=== PATIENT | female | born 1985 | race Caucasian/White ===

== ENCOUNTER 2022-11-23 21:48 | Emergency (ER) | payer OTHER ==
--- OUTSIDE RECORDS SUMMARY | 2022-11-23 21:53 | XMS REPORT | Continuity of Care Document ---
:1985 Author Organization [facility] t Address [address] [facility] [address] [place] [address] Care Team Providers Name Role Phone DESIRAE DOVER Primary Care Physician Unavailable Lore Christensen Attending Clinician Unavailable EVELIO GREENE Attending Clinician Unavailable Evelio Greene PA-C Attending Clinician Doctor Unassigned, [place] Attending Clinician Unavailable ZAFAR LUTZ Attending Clinician Unavailable Zafar Palma Attending Clinician Lennie Melton Attending Clinician Lore Felder MD Attending Clinician LENNIE ALDRICH Attending Clinician Unavailable 2, [facility] Attending Clinician Unavailable KYLAH GUTIERREZ Attending Clinician Unavailable Maty Vazquez MD Attending Clinician Kylah Syed Attending Clinician Car BOLDEN Niteshlorrie Rebolledo Attending Clinician Max Ovalles MD Attending Clinician MAX OVALLES Attending Clinician Unavailable MAX OVALLES Attending Clinician Unavailable Rafia Hernandez Attending Clinician RAFIA FLETCHER Attending Clinician Unavailable Mele Marinelli Attending Clinician Lanette Prakash Attending Clinician Arpit Avalos Attending Clinician Corey Angela MD Attending Clinician MALCOLM MIGUEL Attending Clinician Unavailable Sadie Mckinnon Attending Clinician SADIE ZHOU Attending Clinician Unavailable AMOS GALINDO Attending Clinician Unavailable TU GERARDO Attending Clinician Unavailable KNOW, DOES_NOT Admitting Clinician Unavailable MATY VAZQUEZ Admitting Clinician Unavailable MAX OVALLES Admitting Clinician Unavailable RAFIA FLETCHER Admitting Clinician Unavailable Adryan Driscoll Admitting Clinician Unavailable AMOS GALINDO Admitting Clinician Unavailable Payers Payer Name Policy Type Policy Number Effective Date Expiration Date Lorrie pereira [facility] [id number] 2016 00:00:00 PLUS Problems Condition Condition Condition Status Onset Resolution Last Treating Co mments Source Name Details Category Date Date Treatment Clinician Date Anxiety Anxiety Disease Active 2019-09 Univers 0-16 ity of 00:00: [place] [address] Medical Lee[place] Attention Attention Disease Active 2019-09 Uni vers deficit deficit 0-16 it[place] hyper[place] 00 Medical disorder disorder Branch Chiari Chiari Disease Active 2019-09 Univers malformati malformati 0-16 it y of on on 00:: [address] Dysuria Dysuria Disease Active Univers 2-28 ity of 00:00: [place] 00 Medical Branch Abnormal Abnormal Disease Active Unive rs urinalysis urinalysis 11-20 it y of 00:00: [place] [facility] Tobacco Tobacco Disease Active Univers use use 1-07 ity of disorder disorder 00:00: [place] [facility] Obesity Obesity Disease Active Univers (BMI (BMI 6-06 ity of 30-39.9) 30-39.9) 00:00: [place] [facility] Hepatitis Hepatitis Disease Active Overview: Univers 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 HbSag neg 05/2018 HIstory of HIstory of Disease Active Overview : Univers Pituitary Pituitary 01-28 Formattin i ty of cyst cyst 00:00: g of this [place] note Medical might be Branch different from the original. 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 Associate d with early breast developme nt. Papilloed amrita. Left Ventricul o-periton eal shunt (06/1994) - never replace. MRI- 2005 was normal. Last MRI (3-4 years ago)- normal. Tiny slit of cyst. Left eye is 20/20. Right eye require glasses. Neuro In 2012 and was supposed to have an MRI but did not go. Last migrain was 2011. History of History of Disease Active Overview : Univers seizures seizures 01-28 Formattin ity of 00:00: g of this [place] note Medical might be Branch different from the original. States 10 years ago Bipolar Bipolar Disease Active 2006-09 Overview: Univ ers disorder disorder 11-20 Formattin ity of in in 00:00: g of this [place] remission remission 00 note Medi asher might be Branch different from the original. ICD10 Diagnosis [employer] at age 17- treat zoloft, ablify and topomax (self discontin ued in December). Previous bipolar. Now more depressio n. Currently stable Mood. Borderline Borderline Disease Active 2006-09 U nivers personalit personalit 11-20 it y of [place] disorder [place] disorder [place] Ventricula Ventricula Disease Active 2006-09 Overview : Univers r Shunt r Shunt 11-20 Formattin ity o f 00:00: g of this [place] 00 note Medical might be Branch different from the original. See Pituitary cyst Simple Simple Problem Active 2020-01-20 [place] obesity obesity 22:41:16 l (disorder) (disorder) [place] [facility] Active Problem 01/20/2020 Medical Group Bipolar Bipolar Problem Active 2020-01-20 Me mor[place] disorder disorder 22:41:16 l (disorder) (disorder) [place] Active Problem 01/20/2020 Medical Group Allergies, Adverse Reactions, Alerts Allergy Allergy Status Severity Reaction(s) Onset Inactive Treating Comm ents Source Name Type Date Date Clinician ONDANSET DRUG Active Unknown-Cmnt Un varghese ALTA HCL INGREDI 4- ity of 00:00: [place] 00 Medical Branch Ondanset Drug Active Unknown - Unive rs al[place] Hcl Allergy See comments - it y of 00:00: [place] 00 [facility] zonisami DA Active U 2019- [facility] de 5-22 Clear 00:00: [place] 00 [facility] zonisawv DA Active U psychosis [facility] de 5-22 Clear 00:00: [place] 00 [facility] ZONISAMI DRUG Active Unknown-Cmnt 2006-09 Un varghese DE INGREDI 2-05 ity of 00:00: [place] 00 Medical [place] Zonisami Propensi Active Unknown - 2006-09 psychosis Univers de ty to See comments 2-05 ity of adverse 00:00: [place] reaction 00 Medical s Lee[place] Zonegran Zonegran Active Isela Xiong Social History Social Habit Start Date Stop Date Quantity Comments Source History of tobacco Cigarette Smoker University of use [facility] Exposure to 2022-03-25 2022-04-04 Not sure [facility] SARS-CoV-2 (event) 00:00:00 14:48:00 [facility] Alcohol intake 2022-03-17 2022-03-17 0 /d University of 00:00:00 00:00:00 [facility] Cigarettes smoked 2019-09-29 2019-09-29 Univers ity of current (pack per 00:00:00 00:00:00 ) - Reported Branch Tobacco Comment 2019-09-29 2019-09-29 started smoking Univ ersity of 00:00:00 00:00:00 07/2019 [facility] Tobacco use and 2019-09-29 2019-09-29 Smokeless Universit y of exposure 00:00:00 00:00:00 tobacco non-user [facility] Sex Assigned At [birth year] Universit y of 00:00:00 00:00:00 [facility] Smoking Status Start Date Stop Date Source Social History 2020-01-18 15:02:46 [facility] Medications Ordered Filled Start Stop Current Ordering Indication Dosage Frequency Signature Comments Components Source Medication Medication Date Date Medication? Clinician (SIG) Name Name eszopiclone Yes 2mg Take 2 mg U nivers 2 mg tablet 7-13 by mouth ity of 15:28: at [place] [address] bedtime. Medical Branch SERTraline Yes sertraline U nivers 100 mg 7-13 100 mg ity of tablet 15:28: tablet [place] [address] TAKE 1 Medical TABLET Branch EVERY DAY BY ORAL ROUTE FOR 30 DAYS. eszopiclone Yes 2mg Take 2 mg U nivers 2 mg tablet 7-13 by mouth ity of 15:28: at [place] [address] bedtime. Medical Branch SERTraline Yes sertraline U nivers 100 mg 7-13 100 mg ity of tablet 15:28: tablet [place] [address] TAKE 1 Medical TABLET Branch EVERY DAY BY ORAL ROUTE FOR 30 DAYS. eszopiclone Yes 2mg Take 2 mg U nivers 2 mg tablet 7-13 by mouth ity of 15:28: at [place] [address] bedtime. Medical Branch SERTraline Yes sertraline U nivers 100 mg 7-13 100 mg ity of tablet 15:28: tablet [place] [address] TAKE 1 Medical TABLET Branch EVERY DAY BY ORAL ROUTE FOR 30 DAYS. LOESTRIN FE Yes [id number] 1{tbl} Take 1 Univers 1 mg-20 mcg 7-13 tablet by ity of (21)/75 mg 00:00: mouth in [place] as (7) tablet 00 the Medical morning. Branch LOESTRIN FE Yes [id number] 1{tbl} Take 1 Univers 1 mg-20 mcg 7-13 tablet by ity of (21)/75 mg 00:00: mouth in [place] as (7) tablet 00 the Medical morning. Branch traZODone Yes trazodone Uni vers 50 mg 4-12 50 mg ity of tablet 13:25: tablet TAKE 1 TO Medical 2 TABLETS Branch BY MOUTH NIGHTLY traZODone Yes trazodone Uni vers 50 mg 4-12 50 mg ity of tablet 13:25: tablet TAKE 1 TO Medical 2 TABLETS Branch BY MOUTH NIGHTLY traZODone Yes trazodone Uni vers 50 mg 4-12 50 mg ity of tablet 13:25: tablet TAKE 1 TO Medical 2 TABLETS Branch BY MOUTH NIGHTLY ARIPiprazol Yes aripiprazo Univers e 15 mg 4-12 le 15 mg ity of tablet 13:07: tablet Medical Branch diazePAM 2 Yes diazepam 2 U nivers mg tablet 4-12 mg tablet ity o f 13:07: TAKE 1 TABLET BY Medical MOUTH Branch TWICE A DAY NEEDED atomoxetine Yes atomoxetin Univers 40 mg 4-12 e 40 mg ity of capsule 13:07: capsule TAKE 1 Medical CAPSULE BY Branch MOUTH EVERY DAY ARIPiprazol Yes aripiprazo Univers e 15 mg 4-12 le 15 mg ity of tablet 13:07: tablet Medical Branch diazePAM 2 Yes diazepam 2 U nivers mg tablet 4-12 mg tablet ity o f 13:07: TAKE 1 23 TABLET BY Medical MOUTH Branch TWICE A DAY NEEDED atomoxetine Yes atomoxetin Univers 40 mg 4-12 e 40 mg ity of capsule 13:07: capsule TAKE 1 Medical CAPSULE BY Branch MOUTH EVERY DAY ARIPiprazol Yes aripiprazo Univers e 15 mg 4-12 le 15 mg ity of tablet 13:07: tablet 23 Medical Branch diazePAM 2 Yes diazepam 2 U nivers mg tablet 4-12 mg tablet ity o f 13:07: TAKE 1 23 TABLET BY Medical MOUTH Branch TWICE A DAY NEEDED atomoxetine Yes atomoxetin Univers 40 mg 4-12 e 40 mg ity of capsule 13:07: capsule TAKE 1 Medical CAPSULE BY Branch MOUTH EVERY DAY NUVARING 0 2021- No [id number] 1{each} Insert 1 Univers 0.12-0.015 4-12 07-13 Each into ity of mg/24 hr 00:00: 00:00 vagina [place] vaginal 00 :00 once every Medica l insert month. Branch Insert vaginally and leave in place for 3 consecutiv e weeks, then remove for 1 week. VRAYLAR 3 Yes Univers mg Cap 3-17 ity of 00:00: [place] 00 Medical Branch VRAYLAR 3 2021-0 Yes Univers mg Cap 3-17 ity of 00:00: [place] 00 Medical Branch VRAYLAR 3 2021-0 Yes Univers mg Cap 3-17 ity of 00:00: [place] 00 Medical Branch DULoxetine 2021-0 Yes TAKE 1 Unive rs 60 mg 3-02 CAPSULE BY ity of capsule 00:00: MOUTH [place] EVERY DAY Medical FOR 30 Branch DAYS DULoxetine 2021-0 Yes TAKE 1 Unive rs 60 mg 3-02 CAPSULE BY ity of capsule 00:00: MOUTH [place] EVERY DAY Medical FOR 30 Branch DAYS DULoxetine 2021-0 Yes TAKE 1 Unive rs 60 mg 3-02 CAPSULE BY ity of capsule 00:00: MOUTH [place] EVERY DAY Medical FOR 30 Branch DAYS propranoloL 2021-0 Yes TAKE 1 Univ ers 20 mg 2-24 TABLET BY ity of tablet 00:00: MOUTH [place] EVERY DAY Medical FOR 30 Branch DAYS propranoloL 2021-0 Yes TAKE 1 Univ ers 20 mg 2-24 TABLET BY ity of tablet 00:00: MOUTH [place] 00 EVERY DAY Medical FOR 30 Branch DAYS propranoloL 2021-0 Yes TAKE 1 Univ ers 20 mg 2-24 TABLET BY ity of tablet 00:00: MOUTH [place] EVERY DAY Medical FOR 30 Branch DAYS UBRELVY 100 2021-0 Yes TAKE 1 Univ ers mg Tab 2-21 TABLET BY ity of 00:00: MOUTH AT [place] 00 ONSET OF Medical MIGRAINE. Branch MAY REPEAT 1 DOSE IN 2 HOURS IF NEEDED (DO NOT EXCEED 2 DOSES IN 24 HOURS) UBRELVY 100 2021-0 Yes TAKE 1 Univ ers mg Tab 2-21 TABLET BY ity of 00:00: MOUTH AT [place] 00 ONSET OF Medical MIGRAINE. Branch MAY REPEAT 1 DOSE IN 2 HOURS IF NEEDED (DO NOT EXCEED 2 DOSES IN 24 HOURS) UBRELVY 100 2021-0 Yes TAKE 1 Univ ers mg Tab 2-21 TABLET BY ity of 00:00: MOUTH AT [place] 00 ONSET OF Medical MIGRAINE. Branch MAY REPEAT 1 DOSE IN 2 HOURS IF NEEDED (DO NOT EXCEED 2 DOSES IN 24 HOURS) topiramate 0 Yes TAKE 1 Unive rs 100 mg 2-17 TABLET BY ity of tablet 00:00: MOUTH [place] 00 TWICE A Medical DAY FOR 90 Branch DAYS topiramate 0 Yes TAKE 1 Unive rs 100 mg 2-17 TABLET BY ity of tablet 00:00: MOUTH [place] 00 TWICE A Medical DAY FOR 90 Branch DAYS topiramate 0 Yes TAKE 1 Unive rs 100 mg 2-17 TABLET BY ity of tablet 00:00: MOUTH [place] 00 TWICE A Medical DAY FOR 90 Branch DAYS VIIBRYD 20 0 Yes TAKE 1 Unive rs mg 1-07 TABLET BY ity of 00:00: MOUTH [place] 00 EVERY DAY Medical WITH FOOD Branch FOR 30 DAYS VIIBRYD 20 0 Yes TAKE 1 Unive rs mg 1-07 TABLET BY ity of 00:00: MOUTH [place] 00 EVERY DAY Medical WITH FOOD Branch FOR 30 DAYS VIIBRYD 20 0 Yes TAKE 1 Unive rs mg 1-07 TABLET BY ity of 00:00: MOUTH [place] 00 EVERY DAY Medical WITH FOOD Branch FOR 30 DAYS ibuprofen 2020-0 Yes [id number] 800mg Take 1 Univers 800 mg 5-24 tablet by ity of tablet 00:00: mouth [place] 00 every 8 Medical (eight) Branch hours as needed for Pain (scale 4-6). methocarbam 2020-0 Yes [id number] 750mg Take 1 Univers oL 750 mg 5-24 tablet by ity o f tablet 00:00: mouth [place] 00 every 6 Medical (six) Branch hours as needed (MUSCLE SPASM). ibuprofen 2020-0 Yes [id number] 800mg Take 1 Univers 800 mg 5-24 tablet by ity of tablet 00:00: mouth [place] 00 every 8 Medical (eight) Branch hours as needed for Pain (scale 4-6). methocarbam 2020-0 Yes [id number] 750mg Take 1 Univers oL 750 mg 5-24 tablet by ity o f tablet 00:00: mouth [place] 00 every 6 Medical (six) Branch hours as needed (MUSCLE SPASM). ibuprofen 2020-0 Yes [id number] 800mg Take 1 Univers 800 mg 5-24 tablet by ity of tablet 00:00: mouth [place] 00 every 8 Medical (eight) Branch hours as needed for Pain (scale 4-6). methocarbam 0 Yes [id number] 750mg Take 1 Univers oL 750 mg 5-24 tablet by ity o f tablet 00:00: mouth [place] 00 every 6 Medical (six) Branch hours as needed (MUSCLE SPASM). divalproex 0 Yes Take by [facility] ers sodium 1-15 mouth. ity of (DEPAKOTE 08:22: [place] ORAL) 44 Medical Branch divalproex 2020-0 Yes Take by [facility] ers sodium 1-15 mouth. ity of (DEPAKOTE 08:22: [place] ORAL) 44 Medical Branch divalproex 2020-0 Yes Take by [facility] ers sodium 1-15 mouth. ity of (DEPAKOTE 08:22: [place] ORAL) 44 Medical Branch albuterol 0 Yes [id number] 2{puff} Inhale 2 Univers 90 1-05 Puffs ity of mcg/actuati 00:00: every 4 [place] as on inhaler 00 (four) Medical hours as Branch needed for Wheezing or Shortness of Breath. ondansetron Yes [id number] 4mg Take 1 Univers (ZOFRAN 1-05 tablet by ity of ODT) 4 mg 00:00: mouth [place] disintegrat 00 every 8 Medic al ing tablet (eight) Branch hours as needed for Nausea and Vomiting (N/V). benzonatate 0 Yes [id number] 100mg Take 1 Univers 100 mg 1-05 capsule by ity of capsule 00:00: mouth 3 [place] 00 (three) Medical times Branch daily as needed for Cough. albuterol 0 Yes [id number] 2{puff} Inhale 2 Univers 90 1-05 Puffs ity of mcg/actuati 00:00: every 4 [place] as on inhaler 00 (four) Medical hours as Branch needed for Wheezing or Shortness of Breath. ondansetron 2020-0 Yes [id number] 4mg Take 1 Univers (ZOFRAN 1-05 tablet by ity of ODT) 4 mg 00:00: mouth [place] disintegrat 00 every 8 Medic al ing tablet (eight) Branch hours as needed for Nausea and Vomiting (N/V). benzonatate 2020-0 Yes [id number] 100mg Take 1 Univers 100 mg 1-05 capsule by ity of capsule 00:00: mouth 3 [place] 00 (three) Medical times Branch daily as needed for Cough. albuterol Yes [id number] 2{puff} Inhale 2 Univers 90 1-05 Puffs ity of mcg/actuati 00:00: every 4 [place] as on inhaler 00 (four) Medical hours as Branch needed for Wheezing or Shortness of Breath. ondansetron Yes [id number] 4mg Take 1 Univers (ZOFRAN 1-05 tablet by ity of ODT) 4 mg 00:00: mouth [place] disintegrat 00 every 8 Medic al ing tablet (eight) Branch hours as needed for Nausea and Vomiting (N/V). benzonatate Yes [id number] 100mg Take 1 Univers 100 mg 1-05 capsule by ity of capsule 00:00: mouth 3 [place] 00 (three) Medical times Branch daily as needed for Cough. proMETHazin 2020-0 Yes [id number] 25mg Take 1 Univers e 25 mg 9-19 tablet by ity of tablet 00:00: mouth [place] 00 every 6 Medical (six) Branch hours as needed for Nausea and Vomiting (N/V). ketorolac 2020-0 Yes [id number] 10mg Take 1 U nivers 10 mg 9-19 tablet by ity of tablet 00:00: mouth [place] 00 every 6 Medical (six) Branch hours as needed for Pain (scale 7-10). proMETHazin 2020-0 Yes [id number] 25mg Take 1 Univers e 25 mg 9-19 tablet by ity of tablet 00:00: mouth [place] 00 every 6 Medical (six) Branch hours as needed for Nausea and Vomiting (N/V). ketorolac 2020-0 Yes [id number] 10mg Take 1 U nivers 10 mg 9-19 tablet by ity of tablet 00:00: mouth [place] 00 every 6 Medical (six) Branch hours as needed for Pain (scale 7-10). proMETHazin 2020-0 Yes [id number] 25mg Take 1 Univers e 25 mg 9-19 tablet by ity of tablet 00:00: mouth [place] 00 every 6 Medical (six) Branch hours as needed for Nausea and Vomiting (N/V). ketorolac 2020-0 Yes [id number] 10mg Take 1 U nivers 10 mg 9-19 tablet by ity of tablet 00:00: mouth every 6 Medical (six) Branch hours as needed for Pain (scale 7-10). Amoxicillin 2020-0 Yes 1 tab, PO, Memoria 875 MG / 4-27 Q12H, Take l Clavulanate 15:16: with food, [place] 125 MG Oral 00 X 10 day, Tablet # 20 tab, [Augmentin 0 875-mg] Refill(s), Pharmacy: [facility] #[id number] Fluconazole 2020-0 Yes 150 mg = 1 Memoria 150 MG Oral 4-27 tab, PO, l Tablet 15:16: ONCE, As [place] [Diflucan] 00 needed for yeast infection, # 1 tab, 0 Refill(s), Pharmacy: [facility] #[id number] Benadryl 2020-0 Yes 0 Memoria 4-27 Refill(s) l 15:03: Depakote 2020-0 Yes PO, TID, 0 Mem oria 4-27 Refill(s) l 15:03: Benztropine 2020-0 Yes 0 Memori a 4-27 Refill(s) l 15:03: Remeron 2020-0 Yes PO, Memoria 4-27 Bedtime, 0 l 15:03: Refill(s) cetirizine 2020-0 Yes 10 mg = 1 Me moria 10 mg oral 4-16 tab, PO, l tablet 21:49: Daily, # [place] 00 14 tab, 0 Refill(s) Ketorolac 2020-0 No 30 mg, Memori a 4-16 Route: IM, l 21:42: ONCE, Dosing Weight 100, kg, Start date: 01/07/20 16:42:00 CDT, Stop date: 01/07/20 16:42:00 CDT diclofenac 2020-0 Yes 75 mg = 1 Me moria sodium 75 4-16 tab, PO, l mg oral 21:42: BID, # 14 [place] nn enteric 00 tab, 0 coated, Refill(s) delayed-rel ease tablet mirtazapine 2020-0 Yes Univer s 15 mg 4-15 ity of tablet 00:00: [address] Branch mirtazapine 2020-0 Yes Univer s 15 mg 4-15 ity of tablet 00:00: [place] [facility] mirtazapine 2020-0 Yes Univer s 15 mg 4-15 ity of tablet 00:00: [place] [facility] topiramate 2020-0 Yes Univers 25 mg 4-13 ity of tablet 00:00: [place] [facility] SERTraline 2020-0 Yes Univers 50 mg 4-13 ity of tablet 00:00: [place] [facility] topiramate 2020-0 Yes Univers 25 mg 4-13 ity of tablet 00:00: [place] [facility] SERTraline 2019-0 Yes Univers 50 mg 4-13 ity of tablet 00:00: [place] [facility] topiramate 2019-0 Yes Univers 25 mg 4-13 ity of tablet 00:00: [place] [facility] Branch SERTraline 2019-0 Yes Univers 50 mg 4-13 ity of tablet 00:00: [place] [facility] Branch Zoloft 2019-0 Yes PO, Daily, Memor ia 4-08 0 l 16:09: Refill(s) [place] Clonidine 2020-0 Yes 0 Memoria 4-08 Refill(s) l 16:09: [place] Abilify 2019-0 Yes PO, Daily, Car [place] 4-08 0 l 16:09: Refill(s) [place] gabapentin 2019-0 Yes Univers 300 mg 4-03 ity of capsule 00:00: [place] [facility] gabapentin 2020-0 Yes Univers 300 mg 4-03 ity of capsule 00:00: [place] [facility] gabapentin 2020-0 Yes Univers 300 mg 4-03 ity of capsule 00:00: [place] [facility] Branch ABILIFY 2020-0 Yes Univers MAINTENA 3-24 ity of 400 mg SSRR 00:00: [place] injection Medical Branch ABILIFY 2020-0 Yes Univers MAINTENA 3-24 ity of 400 mg SSRR 00:00: [place] injection Medical Branch ABILIFY 2020-0 Yes Univers MAINTENA 3-24 ity of 400 mg SSRR 00:00: [place] injection [facility] Branch ondansetron 2020-0 Yes [id number] 4mg Take 1 Univers 4 mg 3-17 tablet by ity of disintegrat 00:00: mouth [place] ing tablet 00 every 4 Medica l (four) Branch hours as needed for Nausea and Vomiting (N/V). ondansetron 2019-0 Yes [id number] 4mg Take 1 Univers 4 mg 3-17 tablet by ity of disintegrat 00:00: mouth [place] ing tablet 00 every 4 Medica l (four) Branch hours as needed for Nausea and Vomiting (N/V). ondansetron 2020-0 Yes [id number] 4mg Take 1 Univers 4 mg 3-17 tablet by ity of disintegrat 00:00: mouth [place] ing tablet 00 every 4 Medica l (four) Branch hours as needed for Nausea and Vomiting (N/V). clonazePAM 2020-0 Yes Univers 1 mg tablet 1-03 ity of 00:00: [facility] Branch DULoxetine 2020-0 Yes Univers 30 mg 1-03 ity of capsule 00:00: [facility] clonazePAM 2019-0 Yes Univers 1 mg tablet 1-03 ity of 00:00: [facility] Branch DULoxetine 2019-0 Yes Univers 30 mg 1-03 ity of capsule 00:00: [facility] clonazePAM 2019-0 Yes Univers 1 mg tablet 1-03 ity of 00:00: [facility] DULoxetine 2019-0 Yes Univers 30 mg 1-03 ity of capsule 00:00: [facility] Branch cyclobenzap 2018-09 Yes [id number] 5mg Take 1 Univers rine 5 mg 2-27 tablet by ity o f tablet 00:00: mouth 3 (three) Medical times Branch daily as needed for Muscle Spasms. ondansetron 2018-09 Yes [id number] 4mg Take 1 Univers (ZOFRAN 2-27 tablet by ity of ODT) 4 mg 00:00: mouth [place] disintegrat 00 every 8 Medic al ing tablet (eight) Branch hours as needed for Nausea and Vomiting (N/V). cyclobenzap 2018-09 Yes [id number] 5mg Take 1 Univers rine 5 mg 2-27 tablet by ity o f tablet 00:00: mouth 3 00 (three) Medical times Branch daily as needed for Muscle Spasms. ondansetron 2018-09 Yes [id number] 4mg Take 1 Univers (ZOFRAN 2-27 tablet by ity of ODT) 4 mg 00:00: mouth [place] disintegrat 00 every 8 Medic al ing tablet (eight) Branch hours as needed for Nausea and Vomiting (N/V). cyclobenzap 2018-09 Yes [id number] 5mg Take 1 Univers rine 5 mg 2-27 tablet by ity o f tablet 00:00: mouth 3 [place] 00 (three) Medical times Branch daily as needed for Muscle Spasms. ondansetron 2018-09 Yes [id number] 4mg Take 1 Univers (ZOFRAN 2-27 tablet by ity of ODT) 4 mg 00:00: mouth [place] disintegrat 00 every 8 Medic al ing tablet (eight) Branch hours as needed for Nausea and Vomiting (N/V). PROAIR HFA Yes INHALE 1 Uni vers 90 2-26 PUFF BY ity of mcg/actuati 00:00: MOUTH [place] on inhaler 00 EVERY 6 Medica l HOURS Branch NEEDED FOR SHORTNESS OF BREATH PROAIR HFA Yes INHALE 1 Uni vers 90 2-26 PUFF BY ity of mcg/actuati 00:00: MOUTH [place] on inhaler 00 EVERY 6 Medica l HOURS Branch NEEDED FOR SHORTNESS OF BREATH PROAIR HFA Yes INHALE 1 Uni vers 90 2-26 PUFF BY ity of mcg/actuati 00:00: MOUTH [place] on inhaler 00 EVERY 6 Medica l HOURS Branch NEEDED FOR SHORTNESS OF BREATH Immunizations Ordered Filled Immunization Date Status Comments [facility] e Immunization Name Name Rho (d) Immune 2018-12-31 Completed University of Globulin 00:00:00 [facility] Rho (d) Immune 2018-12-31 Completed University of Globulin 00:00:00 [facility] Rho (d) Immune 2018-12-31 Completed University of Globulin 00:00:00 [facility] TDAP 2018-10-22 Completed University of 00:00:00 [facility] Influenza Virus 2018-10-22 Completed Universit y of Vaccine Quad .5 mL 00:00:00 [facility] IM 6+ MO Branch TDAP 2018-10-22 Completed University of 00:00:00 [facility] Influenza Virus 2018-10-22 Completed Universit y of Vaccine Quad .5 mL 00:00:00 [facility] IM 6+ MO Branch TDAP 2018-10-22 Completed University of 00:00:00 [facility] Influenza Virus 2018-10-22 Completed Universit y of Vaccine Quad .5 mL 00:00:00 [facility] 6+ MO Branch Rho (d) Immune 2018-10-09 Completed University of Globulin 00:00:00 [facility] Rho (d) Immune 2018-10-09 Completed University of Globulin 00:00:00 [facility] Rho (d) Immune 2018-10-09 Completed University of Globulin 00:00:00 [facility] Varicella 2016-08-14 Completed University of (varivax)(chicken 00:00:00 [place] M edical pox) Branch MMR 2016-08-14 Completed University of 00:00:00 [facility] Pneumococcal 2016-08-14 Completed University o f Polysaccharide, 00:00:00 [place] Med ical PPSV23 (PNEUMOVAX) Branch Varicella 2016-08-14 Completed University of (varivax)(chicken 00:00:00 [facility] edical pox) Branch MMR 2016-08-14 Completed University of 00:00:00 [facility] Pneumococcal 2016-08-14 Completed University o f Polysaccharide, 00:00:00 [place] [facility] PPSV23 (PNEUMOVAX) Branch Varicella 2016-08-14 Completed University of (varivax)(chicken 00:00:00 [facility] edical pox) Branch MMR 2016-08-14 Completed University of 00:00:00 [facility] Pneumococcal 2016-08-14 Completed University o f Polysaccharide, 00:00:00 [place] [facility] PPSV23 (PNEUMOVAX) Branch Rho (d) Immune 2016-06-18 Completed University of Globulin 00:00:00 [facility] Rho (d) Immune 2016-06-18 Completed University of Globulin 00:00:00 [facility] Rho (d) Immune 2016-06-18 Completed University of Globulin 00:00:00 [facility] Vital Signs Vital Name Observation Time Observation Value Comments Source Systolic blood 2022-04-04 20:28:00 115 mm[Hg] Univer sity of pressure [facility] Diastolic blood 2022-04-04 20:28:00 77 mm[Hg] Unive rsity of pressure [facility] Heart rate 2022-04-04 20:28:00 83 /min [facility] Body temperature 2022-04-04 20:28:00 37.33 Yudy [facility] Respiratory rate 2022-04-04 20:28:00 18 /min [facility] Body height 2022-04-04 20:28:00 170.2 cm [facility] Body weight 2022-04-04 20:28:00 102.059 kg [facility] BMI 2022-04-04 20:28:00 35.24 kg/m2 [facility] Systolic (mm Hg) 2020-01-18 14:54:00 Car [facility] Diastolic (mm Hg) 2020-01-18 14:54:00 Mem [facility] Heart Rate 2020-01-18 14:54:00 [facility] Respitory Rate 2020-01-18 14:54:00 [facility] Temperature Oral (F) 2020-01-18 14:54:00 99.1 F [facility] Height 2020-01-18 14:54:00 170.18 cm [facility] Weight 2020-01-18 14:54:00 [facility] BMI Calculated 2020-01-18 14:54:00 [facility] Systolic (mm Hg) 2020-01-07 21:25:00 Car rial [facility]rese Diastolic (mm Hg) 2020-01-07 21:25:00 Mem o[facility] Heart Rate 2020-01-07 21:25:00 [facility] Respitory Rate 2020-01-07 21:25:00 Memori al [facility] Temperature Oral (F) 2020-01-07 21:25:00 98.3 F [facility] Height 2020-01-07 21:25:00 170.18 cm [facility] Weight 2020-01-07 21:25:00 [facility] BMI Calculated 2020-01-07 21:25:00 [facility] Systolic (mm Hg) 2019-12-30 16:10:00 Car rial [facility] Diastolic (mm Hg) 2019-12-30 16:10:00 Mem [facility] Heart Rate 2019-12-30 16:10:00 [facility] Height 2019-12-30 16:10:00 170.18 cm [facility] Weight 2019-12-30 16:10:00 [facility] BMI Calculated 2019-12-30 16:10:00 Memori [facility] Systolic (mm Hg) 2019-12-28 18:15:00 Car rial Tyrese Diastolic (mm Hg) 2019-12-28 18:15:00 Mem [facility] Heart Rate 2019-12-28 18:15:00 [facility] Respitory Rate 2019-12-28 18:15:00 Isela Couch Temperature Oral (F) 2019-12-28 18:15:00 98.9 F Yusuf Xiong Height 2019-12-28 18:15:00 170.18 cm Yusuf Abreuann Weight 2019-12-28 18:15:00 Yusuf Xiong BMI Calculated 2019-12-28 18:15:00 Isela Couch Procedures Procedure Date / Time Performing Clinician Source Performed POCT TEST 2022-04-04 20:54:00 Evelio Greene ty of [facility] CONSENT FOR 2022-04-04 05:01:00 Doctor Unassigned, No Univer [facility] CONTRACEPTION Name [facility] Incision and drainage of 2019-12-28 19:03:00 Mem orial [facility]rese abscess (eg, carbuncle, suppurative hidradenitis, cutaneous or subcutaneous abscess, cyst, furuncle, or paronychia); simple or single Encounters Start End Encounter Admission Attending Care Care Encounter Source Date/Time Date/Time Type Type Clinicians Facility Department ID 2021-07-23 Emergency [facility] [id number] Univers [facility]21 Emergency [facility] [id number] Univers 18:24:38 [facility]-07-20 Emergency [facility] [id number] Univers 14:50:34 [facility] 2020-02-12 Inpatient SAMIRA Christensen, [facility] [id number] [facility] 13:00:00 Lore Daugherty [facility] 2022-04-04 2022-04-04 Outpatient R JC [facility] [id number] Univers 15:00:00 15:51:29 EVELIO hazel [facility] 2022-04-04 2022-04-04 Office Jc NVSARI [id number] Univers 15:00:00 15:51:29 Visit Evelio LOPEZ [id number] i [facility] [id number] [phone] [place] dical [address] BUILDING 2022-04-04 2022-04-04 Orders Doctor SANCHEZ 1.2.840.114 [id number] Univers 00:00:00 00:00:00 Only Unassigned, STEPHANY 350.1.13.10 ity of [place] [facility] [id number] Jaydon as [phone] [address] 2022-03-24 2022-03-24 [facility] [id number] Univers 00:00:00 00:00:00 Evelio JOHN 350.1.13.10 i ty [place] [id number] Me dicjeremías [address] 2022-03-17 2022-03-17 Outpatient R BOLIVAR [facility] [id number] Univers 11:40:00 11:47:58 [facility] 2022-03-17 2022-03-17 Urgent [facility] 1.2.840.114 [id number] Univers 11:40:00 11:47:58 Care [facility] 350.1.13.10 i ty of [place] 4.2.7.2.686 Jaydon as IMANI?BLEA [phone] [address] OFFICE [facility] 2022-02-07 2022-02-07 Urgent Lennie Aldrich [facility] 1.2.840 .114 [id number] Univers 16:40:00 17:00:00 Care [facility] 350.1.13.10 ity of [place] 4.2.7.2.686 [place] as IMANI?BLEA [phone] [address] OFFICE [facility] 2022-02-07 2022-02-07 Outpatient R CURTIS [facility] [id number] Univers 16:40:00 16:40:00 LENNIE hazel o [facility] 2022-01-02 2022-01-02 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, 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 [facility] 1.2.840.114 [id number] Univers 14:45:00 15:00:00 Visit Evelio Greene 350.1.13.10 ity [place] [phone] Me dical NAL 353 [facility] 2022-01-02 2022-01-02 Outpatient R JC [facility] [id number] Univers 13:30:00 14:29:56 EVELIO hazel [facility] 2022-01-02 2022-01-02 Office [facility] 1.2.216.131 [id number] Univers 13:30:00 14:29:56 Visit Evelio LOPEZ 350.1.13.10 i ty of [facility] 4.[place] [phone] Me dical NAL 134 [facility] 2022-01-02 2022-01-02 Orders Doctor LAURA 1.2.840.114 [id number] Univers 00:00:00 00:00:00 Only Unassigned, STEPHANY 350.1.13.10 ity of [place] [facility] 4.2.7.2.686 Jaydon as [phone] [facility] [address] 2021-12-14 2021-12-14 Outpatient R JC [facility] [id number] Univers 13:00:00 13:00:00 [facility] 2021-02-12 2021-02-13 Emergency X JAMAL [facility] ERT [id number] Univers 21:22:00 00:24:00 KYLAH [facility] 2021-02-12 2021-02-13 Emergency Maty Vazquez [facility] 1.2.840 .114 [id number] Univers 21:22:00 00:24:00 Kylah Gutierrez 350.1.13. 10 ity [place] [phone] [facility] [address] 2020-12-13 2020-12-13 Patient Car [facility] 1.2.840.114 [id number] Univers 00:00:00 00:00:00 Outreach Nitesh HYATT 350.1.13.10 i ty of [facility] 4.2.7.2.[place] [phone] Me dical [address] 2020-10-26 2020-10-26 [facility] 1.2.656.016 [id number] Univers 14:34:55 23:59:00 Encounter Max Lopez [facility].10 [facility] [place] [phone] [facility] [address] 2020-10-26 2020-10-26 Outpatient Hamlet OVALLES MAX [facility] [id number] Univers 14:34:55 23:59:00 PRETEMAX Spangler [facility] 2020-10-26 2020-10-26 Orders Doctor LAURA 1.2.840.114 [id number] Univers 00:00:00 00:00:00 Only UnassignedSTEPHANY 350.1.13.10 ity [place] [id number] Jaydon as [phone] [address] 2020-10-17 2020-10-17 Outpatient Hamlet GREENE [facility] [id number] Univers 09:30:00 09:30:00 [facility] 2020-10-07 2020-10-07 Office [facility] 1.2.840.114 [id number] Univers 08:07:02 09:24:50 Visit Max Lopez 350.1.13.10 [facility] 4.2.7.2.686 [facility] [phone] [place] [id number] [facility] 2020-10-07 2020-10-07 Outpatient MAX LINK [facility] [id number] Univers 08:00:00 08:00:00 PREETMAX [facility] 2020-10-07 2020-10-07 Orders Doctor LAURA 1.2.840.114 [id number] Univers 00:00:00 00:00:00 Only UnassignedSTEPHANY 350.1.13.10 ity [place] [facility] 4.2.7.2.686 Jaydon as [phone] [address] 2020-10-04 2020-10-04 Outpatient MAX LINK [facility] [id number] Univers 13:40:00 13:40:00 MAX [facility]ES [facility] 2020-09-27 2020-09-27 Emergency [facility] 1.2.840.114 [id number] Univers 14:43:00 18:45:00 Rafia Lopez 350.1.13.10 i ty of [place] 4.2.7.2.686 [facility] [phone] [address] 2020-09-27 2020-09-27 Emergency X ARPIT, [facility] ERT [id number] Univers 14:43:00 18:45:00 [facility] 2020-06-10 2020-06-11 Emergency [facility] 1.2.395.683 [id number] Univers 20:12:00 00:50:00 Maty Lopez 350.1.13.10 ity of [place] 4.2.7.2.686 [facility] [phone] [address] 2020-02-12 2020-02-12 Outpatient Fermin[facility] [id number] [facility] 18:47:00 18:47:00 Lore [facility] 2020-01-21 2020-01-21 Office Jc [facility] 1.2.184.046 [id number] Univers 10:11:55 10:52:29 Visit Evelio Lopez 350.1.13.10 i ty of [place] 4.2.7.2.686 [facility] Professio [phone] Me dical [address] 2020-01-21 2020-01-21 Office Jc [facility] 1.2.272.570 [id number] 10:11:55 10:52:29 Visit Evelio Lopez 350.1.13.10 [place] 4.2.7.2.686 Professio [phone] [address] 2020-01-21 2020-01-21 Outpatient Hamlet GREENE [facility] [id number] Univers 10:00:00 10:00:00 EVELIO hazel [facility] 2020-01-21 2020-01-21 Orders Doctor SANCHEZ 1.2.840.114 [id number] Univers 00:00:00 00:00:00 Only Unassigned, STEPHANY 350.1.13.10 ity of [place] [facility] 4.2.7.2.686 Jaydon as [id number] [address] 2020-01-21 2020-01-21 Orders Doctor LAURA 1.2.840.114 [id number] 00:00:00 00:00:00 Only Unassigned, STEPHANY 350.1.13.10 [place] [facility] 4.2.7.2.686 [id number] 2020-01-18 2020-01-19 Outpatient nullFlavo [facility] Urgent [id number] Memoria 15:00:00 04:59:59 r Care 03 l Oniel shanks 2020-01-18 2020-01-18 Outpatient Melincoff, [facility] [id number] 10:00:00 23:59:59 Mele Crys 03 2020-01-18 2020-01-18 Outpatient MHIE MHIE [id number] Memoria 10:00:00 10:00:00 03 saima Sidney 2020-01-07 2020-01-08 Outpatient nullFlavo MH Urgent [id number] Memoria 21:20:00 04:59:59 r Care 02 l [facility] 2020-01-07 2020-01-07 Outpatient Olinda, MHMG [facility] [id number] 16:20:00 23:59:59 Lanette Elizabeth 02 2020-01-07 2020-01-07 Outpatient MHIE MHIE [id number] Memoria 16:20:00 16:20:00 02 saima Sidney 2019-12-30 2019-12-31 Outpatient nullFlavo MH Urgent [id number] Memoria 16:00:00 04:59:59 r Care 01 l [facility] 2019-12-30 2019-12-30 Outpatient Bailey, MHMG MH[facility] [id number] 11:00:00 23:59:59 Vincent 01 2019-12-30 2019-12-30 Outpatient MHIE MHIE [id number] Memoria 11:00:00 11:00:00 01 l Sidney 2019-12-28 2019-12-29 Outpatient nullFlavo MH Urgent [id number] Memoria 18:30:00 04:59:59 r Care 00 l [facility] 2019-12-28 2019-12-28 Outpatient Olinda, ALEXIAMG MHMG [id number] 13:30:00 23:59:59 Lanette D 2019-12-28 2019-12-28 Outpatient MHIE MHIE [id number] Memoria 13:30:00 13:30:00 00 l Tyrese 2019-12-21 2019-12-21 Outpatient R JC [facility] [id number] Univers 09:30:00 09:30:00 EVELIO hazel [facility] 2019-12-21 2019-12-21 Telemedici [facility] 1.2.840.114 [id number] Univers 08:15:59 08:30:59 ne Visit Evelio Lopez 350.1.13.10 [facility] [place].2.[place].2.[place] [facility] [phone] T[place] dical nal 134 [facility] 2019-12-08 2019-12-08 Emergency [facility] 1.2.735.792 [id number] Univers 15:30:27 18:20:00 Corey Lopez 350.1.13.10 i ty [facility] 4.2.7.2.[place] [phone] [place] [address] [place] 2019-12-08 2019-12-08 Outpatient R LAMONT [facility] [id number] Univers 16:15:00 16:15:00 MALCOLM hazel [facility] 2019-11-27 2019-11-27 Office [facility] 1.2.387.413 [id number] Univers 10:54:04 11:19:41 Visit Sadie Flores CUSTOMS CONSULTANT 350.1.13.10 it y of [facility] 4.2.7.2.686 Jaydon as MATERNAL [phone] Med ical & CHILD [address] [place] [address] 2019-11-27 2019-11-27 Outpatient Hamlet ZHOU [facility] [id number] Univers 10:45:00 10:45:00 SADIE hazel [facility] 2019-11-24 2019-11-24 Telephone [facility] 1.2.840.114 [id number] Univers 00:00:00 00:00:00 Sadie Flores CUSTOMS CONSULTANT 350.1.13.10 it y of [facility] 4.2.7.2.686 Jaydon as MATERNAL [phone] [facility] CH[facility] [address] [place] [address] 2019-11-23 2019-11-23 Telephone [facility] 1.2.840.114 [id number] Univers 00:00:00 00:00:00 Sadie Flores CUSTOMS CONSULTANT 350.1.13.10 it y of [facility] 4.7.2.686 Jaydon as MATERNAL [phone] [facility] CHILD [address] [place] [address] 2019-11-20 2019-11-20 Office [facility] 1.2.634.452 [id number] Univers 15:56:52 16:32:12 Visit Sadie Flores CUSTOMS CONSULTANT 350.1.13.10 it y of [facility] 4.2.7.2.686 Jaydon as MATERNAL [id number] [facility] & CHILD [address] [place] [address] 2019-11-20 2019-11-20 Outpatient R ABELARDO [facility] [id number] Univers 16:00:00 16:00:00 SADIE hazel [facility] 2019-10-16 2019-10-16 Office [facility] 1.2.610.660 [id number] Univers 10:49:10 11:46:00 Visit Sadie Flores CUSTOMS CONSULTANT 350.1.13.10 it y of [facility] 42.7.2.686 Jaydon as MATERNAL [phone] [facility] & [address] 2019-09-18 2019-09-18 Emergency X MATEO [facility] ERT [id number] Univers 12:36:45 16:29:00 AMOS hazel [facility] 2019-05-13 2019-05-13 Orders Doctor LAURA 1.2.840.114 [id number] Univers 00:00:00 00:00:00 Only Unassigned, STEPHANY 350.1.13.10 ity of [place] [facility] 42.7.2.686 Jaydon as [phone] [address] 2019-01-06 2019-01-06 Outpatient R TU GERARDO [facility] [id number] Univers 13:00:00 14:32:12 ity [facility] Results Test Description Test Time Test Comments Results Result Comments Source POCT TEST 2022-04-04 20:54:00 Test Item Value Reference Range Interpretation Comme nts POCT PREG (test code = 1605) Negative On board controls acceptable with C Line (test code = 3574) Yes POCT PREG LOT # (test code = 3575) POCT PREG TEST DATE (test code = 3576) [facility]00 RUN DATE: 02/24/20 [facility] - LAB PAGE 1 RUN TIME: 1418 Specimen Inquiry RUN USER: INTERFACE ---- --------PATIENT: DANIA DOVER LOC: [facility] U #: [id number] AGE/SX: 35/F ROOM: RE02/17/20[facility] DR: Lore Christensen MD : 87 BED: DIS: STATUS: KRISTI NOBLE TLOC: SPEC #: [id number] RECD: 02/17/20 STATUS: RAFA MOORE #: [id number] HAIR: 02/17/[address] [facility] [address]: Lore Christensen MD ENTERED: 02/17/20 SP TYPE:SURG OTHR DR: DOES_NOT KNOW Adryan Driscoll Jr, MDORDERED: SURG PATH LVL 3 COPIES TO: DOES_NOT KNOW Adryan Driscoll Jr, MD [address] [facility] [address] [facility] [address] [place] [address] [facility] [address] [place] [id number] HISTOLOGY: TISSUE ID BLK PCS NARINDER LEV PROCEDURE DISPOSITION ____ ___ ___ ___ GALLBLADDER, NO A 1-2 1 PROCEDURES: SURG PATH LVL 3 (02/17/20) TISSUES: A. GALLBLADDER, NOS - GALLBLADDER CLINICAL HISTORY SYMPTOMATIC CHOLELITHIASIS - K80.20 CPT CODES CPT CODE(S): 01111 , , , , , , FINALDIAGNOSIS Gallbladder, laparoscopic cholecystectomy: MILD CHRONIC CHOLECYSTITIS WITH CHOLELITHIASIS REACTIVE LYMPH NODE CONTINUED ON NEXT PAGE RUN DATE: 02/24/20 [facility] PAGE 2 RUN TIME: 1418 Specimen Inquiry RUN USER: INTERFACE SPEC #: [facility]:[id number] PATIENT: DANIA DOVER #[id number] (Contin ued) GROSS DESCRIPTION Gallbladder. Received in formalin is an intact gallbladder, 3.3 x 3.5 x 2.5 cm, with awall, 0.3 cm in average thickness. The mucosa is green-brown, smooth and velvety. The lumen [id number] mL of dark green-brown slightly viscous bile and five brown multifaceted calculi, 1.3 x 0.8 x 0.5- 1.7 x 1.3 x 1.3 cm. Adjacent to the cystic duct is a pink-malin lymph node, 0.5 cm in greatest dimension. The lymph node is bisected and the cut surface is malin-pink and solid. ba/nr Section code: A1 Oleomargarine Maker sections of gallbladder A2 Entire lymph node Grossing performed at [facility] Pathology, [address], [address], [place] [address]. Manager Advertising: Brad Streeter M.D. MICROSCOPIC DESCRIPTION Gallbladder. Sections demonstrate gallbladder with associated mucosa. The mucosa demonstrate mild chronic inflammation. Inflammation extends to involve the muscular wall. No dysplasia or malignancy is identified. Sections also demonstrate a reactive lymph node. Signed SIGNATURE ON [place] Melba 02/24/20 1418 END OF REPORT Novel Coronavirus 2019 [id number] 18:33:00 Test Item Value Reference Range Interpretation Comments Novel Coronavirus 2018 Inhouse (test Negative Negative code = COVNONPUI) Comment: PRE OPNovel Coronavirus 2019 [id number] 18:32:00 Test Item Value Reference Range Interpretation Comments Novel Coronavirus 2018 Inhouse (test Negative Negative code = COVNONPUI) Comment: PRE OPBASIC METABOLIC [id number] 19:28:00 Test Item Value Reference Range Interpretation Comments SODIUM (test code = NA) 139 mmol/L 134-147 N POTASSIUM (test code = 3.7 mmol/L 3.4-5.0 N K) CHLORIDE (test code = 108 mmol/L 100-108 N CL) CARBON DIOXIDE (test 26 mmol/L 21-32 N code = CO2) ANION GAP (test code = 5.0 GAP calc 4.0-15.0 N GAP) GLUCOSE (test code = 129 MG/DL 70-110 H GLU) BLOOD UREA NITROGEN 12 MG/DL 7-18 N (test code = BUN) GLOMERULAR FILTRATION >=60 max estimate >60 RATE (test code = GFR) estGFR CREATININE (test code = 0.8 MG/DL 0.6-1.0 N CREAT) CALCIUM (test code = CA) 8.8 MG/DL 8.5-10.1 N PROTHROMBIN [id number] 19:27:00 Test Item Value Reference Range Interpretation Comments PT PATIENT (test code = PTP) 9.0 SECONDS 9.3-12.9 L INTERNATIONAL NORMAL RATIO 0.80 INR Unit 0.8-1.2 N (test code = INR) THROMBOPLASTIN TIME [id number] 19:27:00 Test Item Value Reference Range Interpretation Comments THROMBOPLASTIN TIME PARTIAL 35.9 SECONDS 26-35 H (test code = PTT) HCG SERUM [id number] 19:23:00 Test Item Value Reference Range Interpretation Comments HCG SERUM QUAL (test SERUM NEGATIVE SCREEN NEGATIVE code = HCGQL) CBC W/AUTO [id number] 19:16:00 Test Item Value Reference Range Interpretation Comments WHITE BLOOD CELL (test code = 10.2 K/mm3 3.5-11.0 N WBC) RED BLOOD CELL (test code = RBC) 4.99 M/mm3 4.70-6.10 N HEMOGLOBIN (test code = HGB) 14.3 G/DL 10.4-14.9 N HEMATOCRIT (test code = HCT) 46.0 % 31.5-44.1 H MEAN CELL VOLUME (test code = 92.2 Fl 84.5-98.6 N MCV) MEAN CELL HGB (test code = MCH) 28.7 pg 27.0-34.2 N MEAN CELL HGB CONCETRATION (test 31.1 G/DL 31.5-34.0 L code = MCHC) RED CELL DISTRIBUTION WIDTH (test 14.0 SD 11.5-14.5 N code = RDW) PLATELET COUNT (test code = PLT) 276.0 K/mm3 150-450 N MEAN PLATELET VOLUME (test code = 9.80 fL 7.0-10.5 N MPV) NEUTROPHIL % (test code = NT%) 58.5 % 40-76 N LYMPHOCYTE % (test code = LY%) 31.9 % 20.5-51.1 N MONOCYTE % (test code = MO%) 5.5 % 1.7-9.3 N EOSINOPHIL % (test code = EO%) 3.7 % 0.0-6.0 N BASOPHIL % (test code = BA%) 0.4 % 0.0-2.0 N NEUTROPHIL # (test code = NT#) 5.93 K/mm3 1.8-7.6 N LYMPHOCYTE # (test code = LY#) 3.2 K/mm3 0.6-3.2 N MONOCYTE # (test code = MO#) 0.6 K/mm3 0.3-1.1 N EOSINOPHIL # (test code = EO#) 0.4 K/mm3 0.0-0.4 N BASOPHIL # (test code = BA#) 0.0 K/mm3 0.0-0.1 N MANUAL DIFF REQUIRED (test code = NO DIFF/SCN CRITERIA MDIFF)
[2022-11-23] MEDS ORDERED: LIDOCAINE 2% MPF 5 ML VIAL ONE (22:53)
[2022-11-23] MEDS ORDERED: IBUPROFEN 400 MG TAB ONE (22:54)
[2022-11-23] MEDS ORDERED: CEFTRIAXONE 1000 MG/VIAL ONE (22:54)
[2022-11-23] MEDS ORDERED: clonazePAM 1 MG TAB ONE (22:54)
--- NOTE | 2022-11-23 23:34 | ER ---
Nurse's Notes [facility] Name: Mara Dover Age: 37 yrs Sex: Female : 1985 Arrival Date: 11/23/2022 Time: 21:51 Bed 20 Private MD: Diagnosis: Anxiety disorder, unspecified-Benzodiazepine dependence, benzodiazepine withdrawal, dental caries , dental decay, periodontal disease, gingivitis, periapical abscess;Generalized anxiety disorder;Dental root caries Presentation: 11/23 22:18 Chief complaint: Patient states: [place] been without my clonazepam since last Saturday. my lg3 dr called me in a prescription but the pharmacy is out of stock. i notified my dr and they were supposed to send the prescription somewhere else but they didn't and now its the weekend and im very anxious and on edge. Coronavirus screen: Client denies travel out of the [place] in the last 14 days. At this time, the client does not indicate any symptoms associated with coronavirus-19. Ebola Screen: No symptoms or risks identified at this time. Initial Sepsis Screen: Does the patient meet any 2 criteria? No. Patient's initial sepsis screen is negative. Does the patient have a suspected source of infection? No. Patient's initial sepsis screen is negative. Risk Assessment: Do you want to hurt yourself or someone else? Patient reports no desire to harm self or others. Onset of symptoms is unknown. 22:18 Method Of Arrival: Ambulatory lg3 22:18 Acuity: KEITH 4 lg3 Triage Assessment: 22:20 General: Appears in no apparent distress. uncomfortable, Behavior is cooperative, lg3 anxious. Pain: Denies pain. EENT: No deficits noted. No signs and/or symptoms were reported regarding the EENT system. Neuro: No deficits noted. Hawk Agitation-Sedation Scale (RASS): +1 Restless Level of Consciousness is awake, alert, obeys commands, Oriented to person, place, time, situation. Cardiovascular: No deficits noted. Denies chest pain, shortness of breath. Respiratory: No deficits noted. Airway is patent Respiratory effort is even, unlabored, Respiratory pattern is regular, symmetrical. GI: No deficits noted. No signs and/or symptoms were reported involving the gastrointestinal system. : No deficits noted. No signs and/or symptoms were reported regarding the genitourinary system. Derm: No deficits noted. No signs and/or symptoms reported regarding the dermatologic system. Musculoskeletal: No deficits noted. No signs and/or symptoms reported regarding the musculoskeletal system. HOSPITALIST PHYSICIAN: 22:20 LMP 11/23/2022 lg3 Historical: - Allergies: 22:20 Zonegran; lg3 - Home Meds: 22:20 Topamax 100 mg oral tab 1 tab 2 times per day [Active]; clonazepam 2 mg Oral tab 1 tab lg3 2 times per day [Active]; Vraylar 4.5 mg oral cap 1 cap once daily [Active]; - PMHx: 22:20 Anxiety; Bipolar disorder; Hepatitis; Migraines; Shunt; lg3 - PSHx: 22:20 Cholecystectomy; section; shunt; lg3 - Immunization history:: Adult Immunizations up to date, Client reports having NOT received the Covid vaccine. Flu vaccine is not up to date. - Social history:: Smoking status: Patient reports the use of cigarette tobacco products, smokes one-half pack cigarettes per day, Patient/guardian denies using alcohol, street drugs. - Family history:: not pertinent. - Hospitalizations: : No recent hospitalization is reported. Screenin:20 [facility] ED Fall Risk Assessment (Adult) History of falling in the last 3 months, ke1 including since admission No falls in past 3 months (0 pts) Confusion or Disorientation No (0 pts) Intoxicated or Sedated No (0 pts) Impaired Gait No (0 pts) Mobility Assist Device Used No (0 pt) Altered Elimination No (0 pt) Score/Fall Risk Level 0 - 2 = Low Risk. Abuse screen: Denies threats or abuse. Nutritional screening: No deficits noted. Tuberculosis screening: No symptoms or risk factors identified. Assessment: 23:15 Reassessment: Patient and/or family updated on plan of care and expected duration. Pain ke1 level reassessed. Patient is alert, oriented x 3, equal unlabored respirations, skin warm/dry/pink. Patient denies pain at this time. Patient states feeling better. Patient states symptoms have improved. Vital Signs: 22:18 BP 121 / 90; Pulse 67; Resp 18 S; Temp 99.4(O); Pulse Ox 100% on R/A; Weight 99.79 kg lg3 (R); Height 5 ft. 7 in. (170.18 cm) (R); Pain 0/10; 22:18 Body Mass Index 34.46 (99.79 kg, 170.18 cm) lg3 ED Course: 21:51 Patient arrived in ED. jj6 22:03 Sourav Henderson MD is Attending Physician. sp4 22:20 Triage completed. lg3 22:20 Arm band placed on right wrist. lg3 22:20 Patient has correct armband on for positive identification. ke1 22:24 Stephani Guerrero RN is Primary Nurse. ke1 11/24 00:24 No provider procedures requiring assistance completed. Patient did not have IV access ke1 during this emergency room visit. Administered Medications: 11/23 22:58 Drug: clonazePAM 2 mg Route: PO; ke1 11/24 00:25 Follow up: Response: Marked relief of symptoms ke1 11/23 22:58 Drug: Rocephin (cefTRIAXone) 1 grams Route: IM; Site: right ventrogluteal; ke1 11/24 00:25 Follow up: Response: No adverse reaction ke1 11/23 22:58 Drug: Ibuprofen 800 mg Route: PO; ke1 11/24 00:25 Follow up: Response: Marked relief of symptoms ke1 Medication: 00:24 VIS not applicable for this client. ke1 Outcome: 11/23 23:34 Discharge ordered by . sp4 11/24 00:24 Discharged to home ambulatory. ke1 Condition: stable Discharge instructions given to patient. 00:26 Patient left the ED. ke1 Signatures: Eri Cheatham RN RN lg3 Aileen Luis jj6 Stephani Guerrero RN RN ke1 Sourav Henderson MD MD sp4
--- NOTE | 2022-11-23 23:34 | EDPHYS ---
Physician Documentation [facility] Name: Mara Dover Age: 37 yrs Sex: Female : 1985 Arrival Date: 11/23/2022 Time: 21:51 Bed 20 Private MD: ED Physician Sourav Henderson HPI: 11/23 22:04 This 37 yrs old Female presents to ER via Unassigned with complaints of Anxiety. sp4 22:42 37-year-old female presents with complaint of persistent anxiety, patient states that sp4 she is out of her clonazepam for 1 week.. 22:44 Patient states that her primary care doctor could not be reached to refill her sp4 clonazepam prescription. 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 Michaelle Burgess patient states that for 1 week she was not able to sleep, patient also complains of dental decay and painful tooth at the right lower molar tooth #30. . 22:44 Onset: The symptoms/episode began/occurred acutely, last week. Severity of symptoms:. 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 Flu vaccine is not up to date. - Social history:: Smoking status: Patient reports the use of cigarette tobacco products, smokes one-half pack cigarettes per day, Patient/guardian denies using alcohol, street drugs. - Family history:: not pertinent. - Hospitalizations: : No recent hospitalization is reported. ROS: 22:44 Constitutional: Negative for fever, chills, and weight loss, patient reports moderate sp4 anxiety and insomnia Eyes: Negative for injury, pain, redness, and discharge, ENT: Negative for injury, pain, and discharge, patient has right lower molar dental pain, swelling, tenderness and moderate dental decay Neck: Negative for injury, pain, and swelling, Cardiovascular: Negative for chest pain, palpitations, and edema, Respiratory: Negative for shortness of breath, cough, wheezing, and pleuritic chest pain, Abdomen/GI: Negative for abdominal pain, nausea, vomiting, diarrhea, and constipation, Back: Negative for injury and pain, : Negative for injury, bleeding, discharge, and swelling, MS/Extremity: Negative for injury and deformity, Skin: Negative for injury, rash, and discoloration, Neuro: Negative for headache, weakness, numbness, tingling, and seizure, Psych: Negative for depression, suicide ideation, homicidal ideation, and hallucinations, reports moderate anxiety and insomnia Allergy/Immunology: Negative for hives, rash, and allergies, Endocrine: Negative for neck swelling, polydipsia, polyuria, polyphagia, and marked weight changes, Hematologic/Lymphatic: Negative for swollen nodes, abnormal bleeding, and unusual bruising. Exam: 22:44 Constitutional: This is a well developed, well nourished patient who is awake, alert, sp4 and in no acute distress. No obvious anxiety Head/Face: Normocephalic, atraumatic. Eyes: Pupils equal round and reactive to light, extra-ocular motions intact. Lids and lashes normal. Conjunctiva and sclera are non-icteric and not injected. Cornea within normal limits. Periorbital areas with no swelling, redness, or edema. ENT: Nares patent. No nasal discharge, no septal abnormalities noted. Tympanic membranes are normal and external auditory canals are clear. Oropharynx with no redness, swelling, or masses, exudates, or evidence of obstruction, uvula midline. Mucous membranes moist. Moderate dental decay at the tooth #30 there is gingival tenderness redness and swelling no drainable abscess Neck: Trachea midline, no thyromegaly or masses palpated, and no cervical lymphadenopathy. Supple, full range of motion without nuchal rigidity, or vertebral point tenderness. No Meningismus. Chest/axilla: Normal chest wall appearance and motion. Nontender with no deformity. No lesions are appreciated. Cardiovascular: Regular rate and rhythm with a normal S1 and S2. No gallops, murmurs, or rubs. Normal PMI, no JVD. No pulse deficits. Respiratory: Lungs have equal breath sounds bilaterally, clear to auscultation and percussion. No rales, rhonchi or wheezes noted. No increased work of breathing, no retractions or nasal flaring. Abdomen/GI: Soft, non-tender, with normal bowel sounds. No distension or tympany. No guarding or rebound. No evidence of tenderness throughout. Back: No spinal tenderness. No costovertebral tenderness. Full range of motion. Skin: Warm, dry with normal turgor. Normal color with no rashes, no lesions, and no evidence of cellulitis. MS/ Extremity: Pulses equal, no cyanosis. Neurovascular intact. Full, normal range of motion. Neuro: Awake and alert, GCS 15, oriented to person, place, time, and situation. Cranial nerves II-XII grossly intact. Motor strength 5/5 in all extremities. Sensory grossly intact. Cerebellar exam normal. Normal gait. Psych: Awake, alert, with orientation to person, place and time. Behavior, mood, and affect are within normal limits. No obvious anxiety appears calm Vital Signs: 22:18 BP 121 / 90; Pulse 67; Resp 18 S; Temp 99.4(O); Pulse Ox 100% on R/A; Weight 99.79 kg lg3 (R); Height 5 ft. 7 in. (170.18 cm) (R); Pain 0/10; 22:18 Body Mass Index 34.46 (99.79 kg, 170.18 cm) lg3 MDM: 22:44 Differential Diagnosis Anxiety disorder, benzodiazepine withdrawal, dental abscess, sp4 gingival abscess, periodontal disease. Data reviewed: vital signs, nurses notes, old medical records, Patient was here for abdominal pain October 2022. 22:57 Patient medically screened. sp4 23:38 Test considered but Not performed: Labs: At this time not indicated. Care significantly sp4 affected by the following chronic conditions: Chronic anxiety and insomnia. Medication response: Responded well to clonazepam. ED course: Dental carious at the tooth #30 associated with early abscess, at this time abscess is nondrainable patient was given IM Rocephin and p.o. ibuprofen. Will prescribe p.o. Augmentin twice a day for 10 days and will advise follow-up with a dentist. ED course: For chronic anxiety patient is out of her clonazepam. Patient states that she plans to see her primary doctor in 1 week for clonazepam refill. At this time will provide clonazepam 2 mg p.o. twice a day for 7 days to bridge patient until she can see a primary MD. patient is otherwise stable for discharge home. Patient was prescribed Flonase a panel for 1 week. Return to ER precautions were discussed with patient in detail.. 11/23 22:44 Order name: Urine Test (obtain specimen); Complete Time: 23:13 sp4 11/23 23:13 Interpretation: Within normal limits. sp4 Administered Medications: 22:58 Drug: clonazePAM 2 mg Route: PO; ke1 11/24 00:25 Follow up: Response: Marked relief of symptoms 1 11/23 22:58 Drug: Rocephin (cefTRIAXone) 1 grams Route: IM; Site: right ventrogluteal; ke1 11/24 00:25 Follow up: Response: No adverse reaction 1 11/23 22:58 Drug: Ibuprofen 800 mg Route: PO; ke1 11/24 00:25 Follow up: Response: Marked relief of symptoms formerly [facility] Disposition Summary: 11/23/22 23:34 Discharge Ordered Location: Home sp4 Problem: new sp4 Symptoms: have improved sp4 Condition: Stable sp4 Diagnosis - Anxiety disorder, unspecified - Benzodiazepine dependence, benzodiazepine sp4 withdrawal, dental caries , dental decay, periodontal disease, gingivitis, periapical abscess - Generalized anxiety disorder sp4 - Dental root caries sp4 Followup: sp4 - With: Private Physician - When: 1 week - Reason: Discharge Instructions: - Discharge Summary Sheet sp4 - Dental Abscess, [id number] sp4 - Managing Anxiety, Adult sp4 Forms: - Thank You Letter sp4 - Antibiotic Education sp4 Prescriptions: - clonazepam 1 mg Oral tablet - take 2 tablet by ORAL route 2 times per day for 7 days; 28 tablet; Refills: 0, sp4 Product Selection Permitted - Augmentin 875-125 mg Oral Tablet - take 1 tablet by ORAL route every 12 hours for 10 days; 20 tablet; Refills: 0, sp4 Product Selection Permitted - Ibuprofen 800 mg Oral Tablet - take 1 tablet by ORAL route every 8 hours As needed take with food; 30 tablet; sp4 Refills: 0, Product Selection Permitted Signatures: Eri Cheatham RN RN lg3 Stephani Guerrero RN RN ke1 Potepalov, Sourav, MD MD sp4
[2022-11-24 00:31] VITALS: BP 121/90; TEMP 99.4; O2SAT 100
== END 2022-11-24 00:26 | disposition home or self-care (01) ==
LOC: ER 21:48
DX: F41.1 Generalized anxiety disorder (principal); F13.239 Sedative, hypnotic or anxiolytic dependence with withdrawal, unspecified; K04.7 Periapical abscess without sinus; K05.6 Periodontal disease, unspecified; K05.10 Chronic gingivitis, plaque induced; K02.9 Dental caries, unspecified; K02.7 Dental root caries
CPT/HCPCS: 96372; 99283; J2001